=== PATIENT | male | born 1955 | race Caucasian/White ===

== ENCOUNTER 2017-08-16 14:59 | Emergency (ER) | payer OTHER ==
[2017-08-16] MEDS ORDERED: TDAP VACCINE 0.5 ML SUS IM ONE ×2 (15:05→15:08)
[2017-08-16] MEDS: SODIUM CHLORIDE 0.9% FLUSH 10 ML SOL IV PRN ×2 (15:05→15:37)
[2017-08-16] MEDS ORDERED: LIDOCAINE HCL 1% MPF SOL INFIL ONE (15:26)
[2017-08-16] MEDS ORDERED: CEFAZOLIN (PREMIX) 1 GM 1 GM/50 ML SOL IV ONE (15:30)
[2017-08-16] MEDS ORDERED: CEFAZOLIN SODIUM 1 GM PDS ONE (15:33)
[2017-08-16] MEDS ORDERED: LIDOCAINE HCL 1% MPF SOL ONE (16:05)
[2017-08-16] MEDS ORDERED: HYDROMORPHONE HCL 2 MG/ML SOL IV ONE ×2 (16:33→17:14)
[2017-08-16] MEDS ORDERED: HYDROMORPHONE HCL 2 MG/ML SOL ONE ×2 (16:35→17:15)
[2017-08-16 16:46] VITALS: RESP 16; O2SAT 98
[2017-08-16 16:48] VITALS: TEMP 98
[2017-08-16 17:27] VITALS: BP 158/94; PULSE 92
== END 2017-08-16 17:26 | disposition short-term general hospital (02) | DRG 563 ==
LOC: ED 14:59
DX: S63.287A Dislocation of proximal interphalangeal joint of left little finger, initial encounter (principal); S61.213A Laceration without foreign body of left middle finger without damage to nail, initial encounter; S63.285A Dislocation of proximal interphalangeal joint of left ring finger, initial encounter; S61.217A Laceration without foreign body of left little finger without damage to nail, initial encounter; S61.215A Laceration without foreign body of left ring finger without damage to nail, initial encounter; S66.117A Strain of flexor muscle, fascia and tendon of left little finger at wrist and hand level, initial encounter; S66.115A Strain of flexor muscle, fascia and tendon of left ring finger at wrist and hand level, initial encounter; W29.8XXA Contact with other powered hand tools and household machinery, initial encounter; Z23 Encounter for immunization
CPT/HCPCS: 73130; 90715; 99285; J0690; J1170; J2001